=== PATIENT | female | born 1995 | race Caucasian/White ===

== ENCOUNTER → 2024-12-13 | Outpatient (CLI) | payer OTHER ==
[2024-12-13 15:07] LABS: PLATELET COUNT, AUTOMATED 343 10^3/uL (150-450)
[2024-12-13 15:33] LABS: ESTIMATED AVERAGE GLUCOSE 108.0 MG/DL (60-110)
[2024-12-13 15:42] LABS: ALT/SGPT 29 U/L (7.0-40); AST/SGOT 19 U/L (<34); CALCIUM LEVEL 9.4 MG/DL (8.5-10.1); CARBON DIOXIDE LEVEL 26 MMOL/L (20-31); CHLORIDE LEVEL 104 MMOL/L (98-107); CHOLESTEROL LEVEL 185 MG/DL (<200); CHOLESTEROL RISK RATIO 3.41 (<5); CREATININE FOR GFR 0.74 MG/DL (0.55-1.30); GLOMERULAR FILTRATION RATE > 90.0 (>60); IRON (FE) 124 UG/DL (50-170); LDL CHOLESTEROL 122.0 MG/DL (<100); MAGNESIUM LEVEL 1.9 MG/DL (1.8-2.4); NON-HDL-C 130.8 MG/DL; POTASSIUM SERUM 4.3 MMOL/L (3.5-5.1); SODIUM LEVEL 140 MMOL/L (136-145); TRIGLYCERIDES LEVEL 44 MG/DL (<150)
[2024-12-13 15:43] LABS: FREE T4 1.20 NG/DL (0.89-1.76)
[2024-12-13 15:44] LABS: TOTAL 25(OH) VITAMIN D 45.3 NG/ML (20.0-100.0); VITAMIN B12 LEVEL 410 PG/ML (211-911)
== END ==
LOC: M LAB 14:08
PROVIDERS: ATTEND Physician Assistant
DX: R51.9 Headache, unspecified (principal); L65.9 Nonscarring hair loss, unspecified

== ENCOUNTER → 2025-02-03 | Outpatient (CLI) | payer OTHER ==
[2025-02-03 16:45] LABS: IRON (FE) 25.0 UG/DL (50-170); PERCENT SATURATION 6.3 % (13.2-45.0)
== END ==
LOC: M LAB 15:29
PROVIDERS: ATTEND Physician Assistant
DX: R79.0 Abnormal level of blood mineral (principal); D64.9 Anemia, unspecified